=== PATIENT | male | born 1965 | race Caucasian/White ===

== ENCOUNTER 2019-01-14 14:49 | Inpatient (IN) | payer OTHER ==
[~2019-01-14] VITALS: Ht 175.3 cm; Wt 104.3 kg
[~2019-01-14 14:49] MED LIST: LEVO100T9 PO; SIMVASTATIN; TRIPLEX
[2019-01-14] MEDS ORDERED: NACL 0.9% 1,000 ML IV ONE (14:54)
[2019-01-14 14:57] VITALS: BP_SYST 135
[2019-01-14] MEDS ORDERED: methylPREDNISolone SOD SUCC/PF 62.5 MG/ML VIAL IVP ONE (15:00)
[2019-01-14] MEDS ORDERED: ALBUTEROL SULFATE 0.083% 2.5 MG/3 ML VIAL.NEB IH ONE ×2 (15:00→17:00)
[2019-01-14] MEDS ORDERED: IPRATROPIUM BROM 0.5 MG/2.5 ML VIAL.NEB (ATROVENT) IH ONE ×2 (15:00→17:00)
[2019-01-14] MEDS ORDERED: MORPHINE 4 MG/ML INJ. SYRINGE IVP ONE (15:45)
[2019-01-14] MEDS ORDERED: ONDANSETRON HCL 4 MG/2 ML VIAL IVP ONE (15:45)
[2019-01-14 15:58] LABS: BASOPHILS % (AUTO) 0.1 % (0.0-2.0); EOSINOPHILS # (AUTO) 0.1 K/uL (0.0-0.4); EOSINOPHILS % (AUTO) 1.6 % (0.0-4.0); HEMATOCRIT 39.9 % (36-54); HEMOGLOBIN 14.2 g/dL (14.0-18.0); LYMPHOCYTES # (AUTO) 2.8 K/uL (1.0-5.5); MEAN CORPUSCULAR HEMOGLOBIN 46 pg (27-31); MEAN CORPUSCULAR HGB CONC 36 % (32-36); MEAN CORPUSCULAR VOLUME 129 fL (79.0-98.0); MONOCYTES # (AUTO) 0.2 K/uL (0.0-1.0); MONOCYTES % (AUTO) 2.9 % (1.7-9.3); NEUTROPHILS # (AUTO) 3.7 K/uL (1.8-7.7); NEUTROPHILS % (AUTO) 54.4 % (40.0-70.0); RED BLOOD CELL COUNT(AUTO) 3.09 MIL/uL (4.2-6.2); RED CELL DISTRIBUTION WIDTH 15.8 % (9.0-15.0); WHITE BLOOD COUNT (AUTO) 6.7 K/uL (4.8-10.8)
[2019-01-14 16:04] LABS: PROTHROMBIN TIME 10.4 SECS (9.5-12.5)
[2019-01-14 16:16] LABS: PLATELET COUNT (AUTO) 111 K/uL (130-430)
[2019-01-14 16:20] LABS: ANION GAP 15 (5-15); CALCIUM 8.4 mg/dL (8.4-11.0); CHLORIDE 104 mmol/L (98-107); CREATININE 1.35 mg/dL (0.55-1.30); GLUCOSE 152 mg/dL (70-99); POTASSIUM 3.5 mmol/L (3.5-5.1); SODIUM SERUM 139 mmol/L (136-145); UREA NITROGEN, BLOOD 11 mg/dL (8-21)
[2019-01-14 16:25] LABS: GFR AFRICAN AMERICAN 71 mL/min (>90)
[2019-01-14 16:33] LABS: ALANINE AMINOTRANSFERASE 34 U/L (12-78); ALBUMIN 3.8 g/dL (3.4-4.8); ALCOHOL, BLOOD < 3 mg/dL (<10); AMYLASE 53 U/L (0-100); LIPASE 135 U/L (73-393); TOTAL BILIRUBIN 1.3 mg/dL (0.0-1.0)
[2019-01-14 17:04] LABS: CKMB RELATIVE INDEX 0.8 (0.0-2.9); CREATINE KINASE MB 5.6 ng/mL (0-3.6)
[2019-01-14 17:08] LABS: ACETAMINOPHEN < 1 ug/mL (1-30)
[2019-01-14 18:01] LABS: ASPARTATE AMINOTRANSFERASE 14 U/L (10-37)
[2019-01-14] MEDS ORDERED: ACETAMINOPHEN 325 MG TABLET PO PRN ×2 (18:15→22:45)
[2019-01-14] MEDS ORDERED: ONDANSETRON HCL 4 MG/2 ML VIAL IVP PRN (18:15)
[2019-01-14] MEDS ORDERED: ASPI-1153 PO (18:17)
[2019-01-14 18:50] VITALS: BP_SYST 132
[2019-01-14] MEDS ORDERED: SODIUM BICARBONATE 8.4% JECT 50 MEQ/50 ML SYRINGE ONE (19:51)
[2019-01-14 20:00] VITALS: BP_SYST 136
[2019-01-14] MEDS: MORPHINE 4 MG/ML INJ. SYRINGE IVP PRN (20:56)
[2019-01-14] MEDS: SODIUM BICARBONATE 8.4% JECT 100 MEQ in D5W 1,000 ML IV SCH (21:15)
[2019-01-14] MEDS ORDERED: IPRATROPIUM/ALBUTEROL SULFATE 3 ML AMPUL.NEB (DUONEB) INH PRN (22:45)
[2019-01-14] MEDS ORDERED: TEMAZEPAM 15 MG CAPSULE PO PRN (22:45)
[2019-01-14] MEDS ORDERED: DEXTROSE 50% JECT 50 ML DISP.SYRIN IVP PRN (22:45)
[2019-01-14 23:46] LABS: BILIRUBIN,URINE NEGATIVE (NEGATIVE); BLOOD, URINE NEGATIVE (NEGATIVE); CLARITY/URINE CLEAR (CLEAR); COLOR,URINE ORANGE (YELLOW); GLUCOSE,URINE TRACE (NEGATIVE); KETONES,URINE TRACE (NEGATIVE); LEUKOCYTE ESTERASE ,URINE NEGATIVE (NEGATIVE); NITRITE, URINE NEGATIVE (NEGATIVE); PROTEIN URINE NEGATIVE (NEGATIVE)
[2019-01-14 23:54] VITALS: BP_SYST 132
[2019-01-14 23:56] LABS: BARBITURATE, URINE NEGATIVE (NEG <=200); BENZODIAZEPINE, URINE NEGATIVE (NEG <=150); CANNABINOID, URINE NEGATIVE (NEG <=50); COCAINE, URINE NEGATIVE (NEG <=150); METHAMPHETAMINES SCREEN,URINE NEGATIVE (NEG <=500); OPIATE, URINE POSITIVE (NEG <=100); PHENCYCLIDINE SCREEN,URINE NEGATIVE (NEG <=25); UR TRICYCLIC ANTIDEPRESSANTS NEGATIVE (NEG <=300); URINE AMPHETAMINE NEGATIVE (NEG <=500); URINE METHADONE NEGATIVE (NEG <=200); URINE OXYCODONE SCREEN NEGATIVE (NEG <=100); URINE PROPOXYPHENE SCREEN NEGATIVE (NEG <=300)
[2019-01-15 00:42] VITALS: BP_SYST 133
[2019-01-15] MEDS: MORPHINE 4 MG/ML INJ. SYRINGE IVP PRN (05:03)
[2019-01-15] MEDS: INSULIN REGULAR, HUMAN 100 UNITS/ML, 10 ML VIAL (humuLIN R) SUBCUT PRN ×2 (06:32→11:18)
[2019-01-15] MEDS ORDERED: LEVOTHYROXINE SODIUM 0.1 MG TABLET PO SCH (07:00)
[2019-01-15 07:38] LABS: ALANINE AMINOTRANSFERASE 51 U/L (12-78); ALBUMIN 3.5 g/dL (3.4-4.8); ANION GAP 10 (5-15); ASPARTATE AMINOTRANSFERASE 63 U/L (10-37); CALCIUM 7.6 mg/dL (8.4-11.0); CHLORIDE 103 mmol/L (98-107); CREATININE 1.26 mg/dL (0.55-1.30); FREE T4 (FREE THYROXINE) 0.2 ng/dl (0.8-1.5); GLUCOSE 179 mg/dL (70-99); POTASSIUM 4.4 mmol/L (3.5-5.1); SODIUM SERUM 138 mmol/L (136-145); THYROID STIMULATING HORMONE 78.27 uIu/mL (0.36-3.74); TOTAL BILIRUBIN 1.1 mg/dL (0.0-1.0); UREA NITROGEN, BLOOD 10 mg/dL (8-21)
[2019-01-15 07:39] LABS: GFR AFRICAN AMERICAN 77 mL/min (>90)
[2019-01-15 07:48] VITALS: BP_SYST 137
[2019-01-15] MEDS: POTASSIUM CHLORIDE 20 MEQ TAB.PRT.SR PO SCH (08:01)
[2019-01-15] MEDS: ASPIRIN 81 MG TABLET(ECOTRIN) PO SCH (08:01)
[2019-01-15 08:09] LABS: CKMB RELATIVE INDEX 0.9 (0.0-2.9); CREATINE KINASE MB 4.3 ng/mL (0-3.6)
[2019-01-15] MEDS: SODIUM BICARBONATE 8.4% JECT 100 MEQ in D5W 1,000 ML IV SCH (08:21)
[2019-01-15 08:24] LABS: CHOLESTEROL 290 mg/dL (<200); TRIGLYCERIDES 323 mg/dL (30-150)
[2019-01-15 08:25] LABS: HDL CHOLESTEROL 37 mg/dL (>45); LDL CHOLESTEROL 145 mg/dL (<100)
[2019-01-15 08:47] LABS: MEAN CORPUSCULAR HGB CONC 35 % (32-36); MONOCYTES # (AUTO) 0.2 K/uL (0.0-1.0)
[2019-01-15] MEDS ORDERED: LEVOTHYROXINE SODIUM 0.1 MG VIAL IVP SCH (09:00)
[2019-01-15] MEDS: CHOLECALCIFEROL (VITAMIN D3) 2,000 UNIT TABLET PO SCH (09:59)
[2019-01-15 10:22] LABS: MEAN CORPUSCULAR HEMOGLOBIN 46 pg (27-31); MONOCYTES % (AUTO) 2.7 % (1.7-9.3); NEUTROPHILS # (AUTO) 5.4 K/uL (1.8-7.7)
[2019-01-15 10:26] LABS: HEMATOCRIT 35.6 % (36-54); HEMOGLOBIN 12.4 g/dL (14.0-18.0); RED BLOOD CELL COUNT(AUTO) 2.72 MIL/uL (4.2-6.2); WHITE BLOOD COUNT (AUTO) 6.7 K/uL (4.8-10.8)
[2019-01-15 10:27] LABS: BASOPHILS % (AUTO) 0.1 % (0.0-2.0); EOSINOPHILS % (AUTO) 0.1 % (0.0-4.0); LYMPHOCYTES # (AUTO) 1.1 K/uL (1.0-5.5); NEUTROPHILS % (AUTO) 80.1 % (40.0-70.0); RED CELL DISTRIBUTION WIDTH 15.4 % (9.0-15.0)
[2019-01-15 10:29] LABS: MEAN CORPUSCULAR VOLUME 131 fL (79.0-98.0)
[2019-01-15 10:53] LABS: PLATELET COUNT (AUTO) 88 K/uL (130-430)
[2019-01-15 11:59] VITALS: BP_SYST 113
[2019-01-15 15:00] VITALS: BP_SYST 127
[2019-01-15] MEDS ORDERED: LORazepam 2 MG/ML VIAL IVP PRN (16:00)
[2019-01-15] MEDS ORDERED: chlordiazePOXIDE HCL 25 MG CAPSULE PO ONE (16:15)
[2019-01-15 17:38] VITALS: BP_SYST 99
[2019-01-15 20:00] VITALS: BP_SYST 125
[2019-01-15] MEDS: chlordiazePOXIDE HCL 25 MG CAPSULE PO SCH (20:04)
[2019-01-15] MEDS: HYDROcodone/ACETAMIN 5-325 MG TAB (NORCO/ VICODIN) PO PRN (23:44)
[2019-01-16 00:42] VITALS: BP_SYST 114
[2019-01-16] MEDS: INSULIN REGULAR, HUMAN 100 UNITS/ML, 10 ML VIAL (humuLIN R) SUBCUT PRN (06:16)
[2019-01-16 07:00] LABS: CALCIUM 8.2 mg/dL (8.4-11.0); CREATININE 1.08 mg/dL (0.55-1.30); FREE T4 (FREE THYROXINE) 0.2 ng/dL (0.6-1.6); POTASSIUM 3.3 mmol/L (3.5-5.1)
[2019-01-16 08:00] VITALS: BP_SYST 130
[2019-01-16 08:07] LABS: THYROID STIMULATING HORMONE 91.02 uIu/mL (0.34-4.82)
[2019-01-16] MEDS ORDERED: LEVOTHYROXINE SODIUM 0.1 MG VIAL IVP SCH (09:00)
[2019-01-16] MEDS: CALCIUM 500 MG/TAB PO SCH ×2 (09:27→09:37)
[2019-01-16] MEDS: ASPIRIN 81 MG TABLET(ECOTRIN) PO SCH (09:27)
[2019-01-16] MEDS: POTASSIUM CHLORIDE 20 MEQ TAB.PRT.SR PO SCH ×2 (09:27→20:05)
[2019-01-16] MEDS: MORPHINE 4 MG/ML INJ. SYRINGE IVP PRN ×2 (09:28→21:38)
[2019-01-16] MEDS: CHOLECALCIFEROL (VITAMIN D3) 2,000 UNIT TABLET PO SCH (09:37)
[2019-01-16] MEDS: chlordiazePOXIDE HCL 25 MG CAPSULE PO SCH ×4 (10:41→20:05)
[2019-01-16 11:32] VITALS: BP_SYST 137
[2019-01-16] MEDS ORDERED: THIAMINE HCL 100 MG TABLET PO ONE (16:15)
[2019-01-16 16:43] VITALS: BP_SYST 121
[2019-01-16 20:03] VITALS: BP_SYST 116
[2019-01-17 01:10] VITALS: BP_SYST 120
[2019-01-17] MEDS: MORPHINE 4 MG/ML INJ. SYRINGE IVP PRN (01:49)
[2019-01-17 06:05] LABS: CALCIUM 7.9 mg/dL (8.4-11.0); CREATININE 1.1 mg/dL (0.55-1.30); POTASSIUM 4.3 mmol/L (3.5-5.1)
[2019-01-17 06:26] LABS: BASOPHILS % (AUTO) 0.3 % (0.0-2.0); EOSINOPHILS # (AUTO) 0.1 K/uL (0.0-0.4); EOSINOPHILS % (AUTO) 1.8 % (0.0-4.0); HEMATOCRIT 38.6 % (36-54); HEMOGLOBIN 13.5 g/dL (14.0-18.0); LYMPHOCYTES # (AUTO) 2.6 K/uL (1.0-5.5); LYMPHOCYTES % (AUTO) 38.8 % (20.5-51.5); MEAN CORPUSCULAR HEMOGLOBIN 46 pg (27-31); MEAN CORPUSCULAR HGB CONC 35 % (32-36); MEAN CORPUSCULAR VOLUME 132 fL (79.0-98.0); MONOCYTES # (AUTO) 0.2 K/uL (0.0-1.0); MONOCYTES % (AUTO) 3.4 % (1.7-9.3); NEUTROPHILS # (AUTO) 3.8 K/uL (1.8-7.7); NEUTROPHILS % (AUTO) 55.7 % (40.0-70.0); PLATELET COUNT (AUTO) 65 K/uL (130-430); RED BLOOD CELL COUNT(AUTO) 2.93 MIL/uL (4.2-6.2); RED CELL DISTRIBUTION WIDTH 15.2 % (9.0-15.0); WHITE BLOOD COUNT (AUTO) 6.8 K/uL (4.8-10.8)
[2019-01-17] MEDS ORDERED: LEVOTHYROXINE SODIUM 0.137 MG TABLET PO SCH (07:00)
[2019-01-17 07:42] LABS: FOLATE (FOLIC ACID) 15.6 ng/mL (>3.0)
[2019-01-17 08:03] VITALS: BP_SYST 132
[2019-01-17] MEDS: POTASSIUM CHLORIDE 20 MEQ TAB.PRT.SR PO SCH (08:53)
[2019-01-17] MEDS: CHOLECALCIFEROL (VITAMIN D3) 2,000 UNIT TABLET PO SCH (08:53)
[2019-01-17] MEDS: ASPIRIN 81 MG TABLET(ECOTRIN) PO SCH (08:53)
[2019-01-17] MEDS: CALCIUM 500 MG/TAB PO SCH (08:54)
[2019-01-17] MEDS ORDERED: CHOLECALCIFEROL (VITAMIN D3) 2,000 UNIT TABLET PO ONE ×2 (09:00→13:30)
[2019-01-17] MEDS ORDERED: FOLIC ACID 1 MG TABLET PO SCH (09:00)
[2019-01-17] MEDS ORDERED: THIAMINE HCL 100 MG TABLET PO SCH (09:00)
[2019-01-17 11:25] VITALS: BP_SYST 116
[2019-01-17] MEDS ORDERED: CYANOCOBALAMIN 1000 MCG/ML VIAL IM ONE (13:00)
[2019-01-17] MEDS ORDERED: CYANOCOBALAMIN 1000 mCg TABLET PO ONE (13:15)
[2019-01-17] MEDS: HYDROcodone/ACETAMIN 5-325 MG TAB (NORCO/ VICODIN) PO PRN (13:33)
[2019-01-17 14:48] VITALS: BP_SYST 116
[2019-01-17 15:20] VITALS: BP_SYST 115
[2019-01-17] MEDS ORDERED: chlordiazePOXIDE HCL 25 MG CAPSULE PO SCH (21:00)
[2019-01-18] MEDS ORDERED: CYANOCOBALAMIN 1000 mCg TABLET PO SCH (09:00)
[2019-01-18] MEDS ORDERED: CHOLECALCIFEROL (VITAMIN D3) 2,000 UNIT TABLET PO SCH (09:00)
== END 2019-01-17 15:45 | disposition home or self-care (01) | DRG 191 ==
LOC: SED 14:49 → STU 18:05
PROVIDERS: ADMIT Internal Medicine; ATTEND Internal Medicine
DX: J44.1 Chronic obstructive pulmonary disease with (acute) exacerbation (principal); M62.82 Rhabdomyolysis; D69.6 Thrombocytopenia, unspecified; D75.89 Other specified diseases of blood and blood-forming organs; M25.511 Pain in right shoulder; E66.9 Obesity, unspecified; M47.22 Other spondylosis with radiculopathy, cervical region; E03.9 Hypothyroidism, unspecified; R16.2 Hepatomegaly with splenomegaly, not elsewhere classified; E11.65 Type 2 diabetes mellitus with hyperglycemia; G47.33 Obstructive sleep apnea (adult) (pediatric); K74.60 Unspecified cirrhosis of liver; E83.51 Hypocalcemia; E53.8 Deficiency of other specified B group vitamins; W11.XXXA Fall on and from ladder, initial encounter; E55.9 Vitamin D deficiency, unspecified; E78.00 Pure hypercholesterolemia, unspecified; E78.5 Hyperlipidemia, unspecified; F17.200 Nicotine dependence, unspecified, uncomplicated; G89.29 Other chronic pain; Z79.82 Long term (current) use of aspirin; Z83.3 Family history of diabetes mellitus; Z90.49 Acquired absence of other specified parts of digestive tract; Y93.89 Activity, other specified; Y92.89 Other specified places as the place of occurrence of the external cause; Y99.8 Other external cause status; Z82.49 Family history of ischemic heart disease and other diseases of the circulatory system; Z91.14 Patient's other noncompliance with medication regimen; Z68.34 Body mass index [BMI] 34.0-34.9, adult
CPT/HCPCS: 36415; 36600; 70450-TC; 71045; 72050-TC; 73030; 76536-TC; 76700-TC; 80048; 80053; 80061; 80307; 81003; 82150-TC; 82306; 82550-TC; 82553-TC; 82607; 82746; 82803-TC; 82962; 83036; 83605; 83690-TC; 83735-TC; 83880; 84439; 84443-TC; 84484; 85025; 85379; 85610-TC; 85730-TC; 87040-TC; 93005; 93306; 94640; 94760; 96361; 96374; 96375; 99285; G0378; G0480; G0481; G0482; J2060; J2270; J2405; J2930; J3420; J7060; J7613; J7620